=== PATIENT | male | born 1955 | race African-American/Black ===

== ENCOUNTER 2017-03-23 07:57 | Day surgery (SDC) | payer OTHER ==
--- NOTE | 2017-03-17 15:34 | HISTORY AND PHYSICAL E ---
History and Physical NAME: DEVANTE RICCI : 1955 AGE: 61Y ADMITTED: 03/23/2017 ROOM: CHIEF COMPLAINT: Patient admitted for colon exam. Saw the patient in 2002. MEDICATIONS: 1. Prednisone. 2. Imuran. 3. Glucophage. 4. Asacol. 5. Aspirin. 6. Enbrel. 7. Meloxicam. 8. Lantus. 9. Metformin. 10. Zyrtec. 11. Zantac. 12. Glucosamine. REVIEW OF SYSTEMS: GASTROINTESTINAL: Question of Crohn disease. Has history of diarrhea. History of GI bleed in 1995. History of polyps. HEENT: History of vasculitis left eye. The patient sees MD at [facility]. PHYSICAL EXAMINATION: VITAL SIGNS: Blood pressure 120/80, pulse 80, respirations 20, temp 98. HEAD, EYES, EARS, NOSE AND THROAT: Normal. NECK: Supple. CARDIOVASCULAR: Normal. LUNGS: Clear. ABDOMEN: Soft. NEUROLOGICAL: Exam negative. History of polyps. History of GI bleed. History of arthritis and diarrhea. Patient did have colonoscopy showed cecal polyp, diverticulosis mild and diarrhea. The patient did have a small polyp in the cecum. The patient has a history of Crohn disease, cecal polyp, diverticulosis. Another colonoscopy in 2003 shows polyp, tubular adenoma polyp in the cecum. At this time, the patient is referred by the [place] for colon exam, abdominal pain. History of adenoma polyp cecum. PLAN: Colonoscopy. His last colon was done in 2003 to 2004, adenoma polyps. CONCLUSIONS: History of diabetes, arthritis, history of cecal polyp. Plan colonoscopy. DICTATING PHYSICIAN: GEETA BALDERRAMA M.D. [id number] PHY#: [id number] ID: [id number] JOB#: [id number] ACCT: [id number] cc:[facility] GEETA GTZ M.D. , [facility] >
[~2017-03-23 07:57] MED LIST: EPINEPHRINE INJ 1 MG/10 ML DISP.SYRIN ONE; FENTANYL CITRATE INJ/PF 100 MCG/2 ML AMPUL ONE; FLUMAZENIL INJ 0.5 MG/5 ML VIAL IV ONE; GLUCAGON,HUMAN RECOMB 1 MG INJ ONE; GLYCOPYRROLATE INJ 0.4 MG/2 ML VIAL ONE; LIDOCAINE 2% JELLY 30 ML TUBE ONE; MIDAZOLAM 2 MG/2 ML INJ ONE; NALOXONE HCL INJ/PF 0.4 MG/1 ML SDV ONE; ONDANSETRON HCL INJ/PF 4 MG/2 ML SDV ONE
[2017-03-23 09:22] VITALS: BP 137/80
--- NOTE | 2017-03-23 20:41 | DISCHARGE SUMMARY E ---
Discharge Summary NAME: DEVANTE RICCI : 1955 AGE: 61Y ADMITTED: 03/23/2017 DISCHARGED: 03/23/2017 HOSPITAL COURSE: The patient is a 61-year-old male allergic to PENICILLIN. He has history of polyps in cecum. Today's colonoscopy successful to the cecum. There were no polyps in the cecum. Patient did have sigmoid polyp. Biopsy obtained. Diffuse diverticulosis. DISCHARGE PLAN: Hold aspirin and meloxicam for 5 days. Awaiting biopsy results. Soft low residue diet for 5 days. Consider age and followup colonoscopy in 3 years pending biopsy results. DICTATING PHYSICIAN: GEETA BALDERRAMA M.D. [id number] PHY#: [id number] ID: [id number] JOB#: [id number] ACCT: [id number] cc:GEETA BALDERRAMA M.D. >
--- NOTE | 2017-03-23 20:41 | OPERATIVE REPORT E ---
Operative Report NAME: DEVANTE RICCI : 1955 AGE: 61Y DATE OF SURGERY: 03/23/2017 ROOM: PREOPERATIVE DIAGNOSES: 1. Colon screening. 2. Remote history of polyps. POSTOPERATIVE DIAGNOSES: 1. External hemorrhoids, mild. 2. Diffuse diverticulosis. 3. Small 3 cm sessile, benign-looking polyp sigmoid. PROCEDURE: Colonoscopy. SURGEON: GEETA BALDERRAMA M.D. TISSUE REMOVED OR ALTERED: Biopsy polyp sigmoid. ANESTHESIA: Versed 2, fentanyl 100. PROCEDURE: Rectal exam shows mild external hemorrhoids. Sigmoid descending colon shows 3 mm polyp sigmoid, biopsy obtained. Descending colon diverticulosis. Transverse colon normal. Ascending colon diverticulosis. Cecum normal. Scope withdrawn from cecum, ascending, transverse, descending, sigmoid all the way to the rectum. CONCLUSION: Sigmoid diverticulosis, small 3 mm polyp, biopsy obtained. Recommend soft, low-residue diet 3 days. Hold aspirin 3 days. Awaiting biopsy results. Consideration followup colonoscopy 3 years pending biopsy results. DICTATING PHYSICIAN: GEETA BALDERRAMA M.D. [id number] PHY#: [id number] ID: [id number] JOB#: [id number] ACCT: [id number] cc:GEETA BALDERRAMA M.D. >
== END 2017-03-23 09:30 | disposition home or self-care (01) ==
LOC: END 07:57
PROVIDERS: ATTEND Specialist
PROC: 0DBN8ZX Excision of Sigmoid Colon, Via Natural or Artificial Opening Endoscopic, Diagnostic (ICD-10-PCS; principal; 2017-03-23 08:00)
DX: Z12.11 Encounter for screening for malignant neoplasm of colon (principal); K64.4 Residual hemorrhoidal skin tags; K57.30 Diverticulosis of large intestine without perforation or abscess without bleeding; D12.5 Benign neoplasm of sigmoid colon; M19.90 Unspecified osteoarthritis, unspecified site; Z88.0 Allergy status to penicillin; Z79.82 Long term (current) use of aspirin; Z79.899 Other long term (current) drug therapy; Z79.4 Long term (current) use of insulin; Z79.84 Long term (current) use of oral hypoglycemic drugs
CPT/HCPCS: 45380; 82962; 88305 ×2; J2250; J3010; J1610; J2405; J0171; J2310; J3490